=== PATIENT | male | born 1970 | race Two or more races ===

== ENCOUNTER 2022-03-18 18:59 | Emergency (ER) | payer OTHER ==
[~2022-03-18] VITALS: Ht 157.5 cm; Wt 81.6 kg
[2022-03-18 19:44] VITALS: BP_SYST 157
--- NOTE | 2022-03-18 20:13 | NUR ---
PT HERE BIB DAUGHTER FOR N/V AND PER DAUGHTER PT WAS NOT EATING. PER PT HE WAS DRINKING SINCE TUESDAY, PER PT HE WAS DRINKING VODKA AND BEER X6 DAYS AND STOP AT 1800. PT DENIES CHEST PAIN HE STATED THAT HE FEELS DEHYDRATED. PMH:DENIES PT AAOX4, NO SOB NOTED AND NOT IN ANY DISTRESS.
[2022-03-18 21:15] LABS: BASOPHILS % (AUTO) 0.6 % (0.0-2.0); EOSINOPHILS % (AUTO) 0.6 % (0.0-4.0); HEMATOCRIT 44.7 % (36-54); LYMPHOCYTES # (AUTO) 1.9 K/uL (1.0-5.5); LYMPHOCYTES % (AUTO) 25.3 % (20.5-51.5); MEAN CORPUSCULAR VOLUME 91 fL (79.0-98.0); MONOCYTES # (AUTO) 0.4 K/uL (0.0-1.0); MONOCYTES % (AUTO) 5.5 % (1.7-9.3); NEUTROPHILS # (AUTO) 5.2 K/uL (1.8-7.7); PLATELET COUNT (AUTO) 241 K/uL (130-430); RED BLOOD CELL COUNT(AUTO) 4.89 MIL/uL (4.2-6.2); RED CELL DISTRIBUTION WIDTH 12.9 % (9.0-15.0); WHITE BLOOD COUNT (AUTO) 7.6 K/uL (4.8-10.8)
[2022-03-18] MEDS ORDERED: LORazepam 2 MG/ML VIAL IVP ONE (21:15)
[2022-03-18] MEDS ORDERED: NACL 0.9% 1,000 ML IV ONE (21:15)
[2022-03-18 21:28] LABS: ANION GAP 8 (5-15); CALCIUM 8.8 mg/dL (8.4-11.0); CHLORIDE 99 mmol/L (98-107); CREATININE 0.92 mg/dL (0.55-1.30); GLUCOSE 115 mg/dL (70-99); POTASSIUM 3.4 mmol/L (3.5-5.1); UREA NITROGEN, BLOOD 8 mg/dL (8-21)
[2022-03-18 21:29] LABS: GFR AFRICAN AMERICAN 111 mL/min (>90)
[2022-03-18 21:37] LABS: ALANINE AMINOTRANSFERASE 49 U/L (12-78); ALBUMIN 3.5 g/dL (3.4-4.8); ALCOHOL, BLOOD 45 mg/dL (<10); ASPARTATE AMINOTRANSFERASE 33 U/L (10-37); LIPASE 80 U/L (73-393); TOTAL BILIRUBIN 0.9 mg/dL (0.0-1.0)
--- NOTE | 2022-03-18 22:21 | NUR ---
Patient wheeled to bed 3 for evaluaion and treatment
--- NOTE | 2022-03-18 22:30 | NUR ---
MD at bedside with patient for evaluation.
[2022-03-18] MEDS ORDERED: ONDA-8 TL (23:07)
[2022-03-18] MEDS ORDERED: LORA2TAB95 PO ×2 (23:07→23:09)
[2022-03-18] MEDS ORDERED: ONDANSETRON HCL 4 MG/2 ML VIAL IVP ONE (23:15)
[2022-03-19 00:09] VITALS: BP_SYST 144
--- NOTE | 2022-03-19 00:10 | NUR ---
Pt states is feeling better and d/c, Rx education given by RN and ERMD understood. IV removed, pressure applied. Pt left a/ox4, steady gait with significant other.
== END 2022-03-19 00:09 | disposition home or self-care (01) ==
LOC: SED 18:59
DX: F19.10 Other psychoactive substance abuse, uncomplicated (principal); F10.239 Alcohol dependence with withdrawal, unspecified; R10.9 Unspecified abdominal pain; R11.2 Nausea with vomiting, unspecified; F17.210 Nicotine dependence, cigarettes, uncomplicated; Z79.899 Other long term (current) drug therapy; Y90.6 Blood alcohol level of 120-199 mg/100 ml
CPT/HCPCS: 99285; 96374; 71045; 96361; 96375; 80053; 83690; 85025; 84484; 36415; 93005; G0482; J2060; J2405; J7030